=== PATIENT | female | born 1955 | race African-American/Black ===

== ENCOUNTER 2020-10-09 21:35 | Emergency (ER) | payer BC ==
[~2020-10-09] VITALS: Ht 160 cm; Wt 85.7 kg
[~2020-10-09 21:35] MED LIST: BACTRIM DS TAB1 EACH PO; NOHOMEMEDICATIONS; NORCO 5-325 TA1 EACH PO
[2020-10-09] MEDS ORDERED: GABAPENTIN100 MG PO (21:41)
[2020-10-09] MEDS ORDERED: CARVEDILOL25 MG PO (21:41)
[2020-10-09] MEDS ORDERED: NEURONTIN300 MG PO (21:41)
[2020-10-09] MEDS ORDERED: HYDRALAZINE 2525 M1 PO (21:42)
[2020-10-09] MEDS ORDERED: LIPITOR 20 MG T20 M1 PO (21:42)
[2020-10-09] MEDS ORDERED: SPIRONOLACTONE25 MG PO (21:42)
[2020-10-09] MEDS ORDERED: NORTRIPTYLINE H10 M2 PO (21:43)
[2020-10-09] MEDS ORDERED: ALLOPURINOL 10100 M1 PO (21:44)
[2020-10-09] MEDS ORDERED: ULTRAM 50MG TAB50 MG PO (21:44)
[2020-10-09 22:10] LABS: BE(vivo) -6.6 mmol/L (-2 to +3); HCO3 19.3 mmol/L (22.0-26.0); PO2 VENOUS 78.6 mmHg (35.0-45.0)
[2020-10-09 22:26] LABS: BASOPHILS 0.5 % (0.0-2.0); EOSINOPHILS 1.2 % (0.0-3.0); HEMATOCRIT 39.6 % (37.0-47.0); HEMOGLOBIN 13.3 gm/dL (12.0-15.0); LYMPHOCYTES 25.4 % (24.0-44.0); MCH 35.6 pg (26.0-34.0); MCHC 33.6 g/dL (28.0-37.0); MONOCYTES 4.7 % (1.0-8.0); PLATELET COUNT 194 thou/uL (150-400); POLYS 68.2 % (36.0-66.0); RBC 3.74 mil/uL (4.20-5.00); RDW 14.8 % (10.5-14.5); WBC 8.7 thou/uL (4.0-11.0)
[2020-10-09 22:28] LABS: CREATININE 1.2 mg/dL (0.6-1.0); POTASSIUM 3.4 mmol/L (3.5-5.1)
[2020-10-09 22:35] LABS: ALBUMIN 3.7 g/dL (3.4-5.0); TOTAL BILIRUBIN 0.8 mg/dL (0.2-1.0); TOTAL PROTEIN 7.2 g/dL (6.4-8.2)
[2020-10-09 22:37] LABS: MAGNESIUM 1.1 mg/dL (1.8-2.4); SALICYLATE 2.7 mg/dL (2.8-20.0); TROPONIN-I <0.06 ng/mL (<0.06)
[2020-10-09 23:24] LABS: URINE BILIRUBIN NEGATIVE (Negative); URINE BLOOD NEGATIVE (Negative); URINE CLARITY CLEAR; URINE COLOR YELLOW; URINE GLUCOSE-RANDOM* NEGATIVE (Negative); URINE KETONES NEGATIVE (Negative); URINE LEUKOCYTES-REFLEX NEGATIVE (Negative); URINE NITRITE-REFLEX NEGATIVE (Negative); URINE PROTEIN (DIPSTICK) 1+ (Negative); URINE SPECIFIC GRAVITY 1.025 (1.005-1.035); URINE UROBILINOGEN 0.2 E.U./dl (0.2-1.0)
[2020-10-09 23:32] LABS: AMP/METHAMP Negative (Negative); BARBITURATES Negative (Negative); BENZODIAZEPINES Negative (Negative); CASTS None Seen /LPF (None Seen); COCAINE POSITIVE (Negative); CRYSTALS None Seen /LPF (None Seen); METHADONE Negative (Negative); MUCUS 0-3 Light strn/LPF (None Seen); OPIATES Negative (Negative); PCP Negative (Negative); SQUAMOUS 4-10 Moderate /LPF (0-3); URINE RBC 0-2 Rare /HPF (0-2); URINE WBC-REFLEX 0-5 Rare /HPF (0-5)
[2020-10-10] MEDS ORDERED: MAG-OXIDE400 MG PO (01:49)
[2020-10-10] MEDS ORDERED: ONDANSETRON ODT8 MG PO (01:49)
[2020-10-10 01:54] VITALS: BP 172/95
--- NOTE | 2020-10-13 08:20 | EKG ---
[facility] [place] [address] ELECTROCARDIOGRAM REPORT Name: NORMAN SAINI Room #: DEP [facility]#: [id number] Admission: 10/09/20 Attend Phys: Discharge: 10/10/20 Date of : 57 Report #: [id number] THIS REPORT FOR: cc: [facility] - Clinic physician unknown [facility] - Clinic physician unknown Antony Thomson MD [facility] THIS REPORT FOR: //name// [facility] ED Test Date: 2020-10-09 Test Time: 22:06:49 Pat Name: NORMAN SAINI Department: Room: Gender: F Visual Artist: [facility] : 1955 Requested By: Nenita Snyder Order Number: [id number] MD: Antony Thomson Measurements Intervals Bernice Rate: 88 P: 41 ND: 191 QRS: -6 QRSD: 92 T: 63 QT: 399 QTc: 483 Interpretive Statements Sinus rhythm Left ventricular hypertrophy Inferior infarct, old Anterior Q waves, possibly due to LVH Baseline wander in lead(s) I,III,aVL No previous ECG available for comparison Electronically Signed On 10-13-2020 8:20:28 [employer] by Antony Thomson [email or web address] <ELECTRONICALLY SIGNED> By: Antony Thomson MD, [facility] 10/13/20819 05 05 Antony Thomson MD, [facility] /EPI
== END 2020-10-10 02:12 | disposition home or self-care (01) ==
LOC: ER 21:35
PROVIDERS: Emergency Medicine; Physician Assistant
DX: F10.920 Alcohol use, unspecified with intoxication, uncomplicated (principal); F14.90 Cocaine use, unspecified, uncomplicated; E10.65 Type 1 diabetes mellitus with hyperglycemia; R42 Dizziness and giddiness; E83.42 Hypomagnesemia; D53.9 Nutritional anemia, unspecified; R11.2 Nausea with vomiting, unspecified; I10 Essential (primary) hypertension; E10.40 Type 1 diabetes mellitus with diabetic neuropathy, unspecified; E66.9 Obesity, unspecified; Z79.899 Other long term (current) drug therapy; Z68.33 Body mass index [BMI] 33.0-33.9, adult; Y90.7 Blood alcohol level of 200-239 mg/100 ml